=== PATIENT | male | born 1980 | race Caucasian/White ===

== ENCOUNTER → 2018-01-10 | Outpatient (CLI) | payer OTHER | LOC: M OUTALCOH 08:02 | DX: Z13.89 Encounter for screening for other disorder (principal); F10.10 Alcohol abuse, uncomplicated ==

== ENCOUNTER 2018-01-17 15:58 | Outpatient (RCR) | payer OTHER | END 2018-01-30 | LOC: M OUTALCOH 01-21 11:30 | DX: F10.10 Alcohol abuse, uncomplicated (principal) ==

== ENCOUNTER 2018-02-04 11:30 | Outpatient (RCR) | payer OTHER | END 2018-03-01 | LOC: M OUTALCOH 02-11 11:30 | DX: F10.10 Alcohol abuse, uncomplicated (principal) ==

== ENCOUNTER → 2018-04-01 | Outpatient (RCR) | payer OTHER | LOC: M OUTALCOH 03-05 16:00 | PROVIDERS: ATTEND Psychiatry & Neurology Psychiatry | DX: F10.10 Alcohol abuse, uncomplicated (principal) ==

== ENCOUNTER 2018-05-01 16:00 | Outpatient (RCR) | payer OTHER | END 2018-05-02 | LOC: M OUTALCOH 16:00 | PROVIDERS: ATTEND Psychiatry & Neurology Psychiatry | DX: F10.10 Alcohol abuse, uncomplicated (principal) ==

== ENCOUNTER 2018-05-29 16:00 | Outpatient (RCR) | payer OTHER | END 2018-05-30 | LOC: M OUTALCOH 16:00 | PROVIDERS: ATTEND Psychiatry & Neurology Psychiatry | DX: F10.10 Alcohol abuse, uncomplicated (principal) ==

== ENCOUNTER 2018-06-24 11:30 | Outpatient (RCR) | payer OTHER | END 2018-06-30 | LOC: M OUTALCOH 11:30 | PROVIDERS: ATTEND Psychiatry & Neurology Psychiatry | DX: F10.10 Alcohol abuse, uncomplicated (principal) ==

== ENCOUNTER 2018-07-08 10:36 | Outpatient (RCR) | payer OTHER | END 2018-07-30 | LOC: M OUTALCOH 10:36 | PROVIDERS: ATTEND Psychiatry & Neurology Psychiatry | DX: F10.10 Alcohol abuse, uncomplicated (principal) ==